=== PATIENT | female | born 1960 | race African-American/Black ===

== ENCOUNTER 2024-03-23 10:52 | Emergency (ER) | payer OTHER ==
[2024-03-23 11:04] VITALS: BP 119/75; PULSE 63; RESP 16; TEMP 97.6
--- NOTE | 2024-03-23 11:54 | ED ---
General Adult HPI - General Chief complaint: Recheck/Abnormal Lab/Rx Stated complaint: behavioral health Time Seen by Provider: 03/23/24 11:48 Source: patient, RN notes reviewed Mode of arrival: EMS Limitations: no limitations - History of Present Illness Initial comments: 63-year-old female with history of diabetes and hypertension presenting with episode of chest pain earlier today. States she was at [facility] for heroin use and this morning she began to feel a substernal chest pain that radiated to her left shoulder and left side of her face. She states she took 325mg aspirin and the pain resolved. She is not currently having any symptoms. She states she was discharged from [facility] today. Denies any cardiac history. - Related Data Allergies Allergy/AdvReac Type Severity Reaction Status Date / Time erythromycin base Allergy Rash/Hives Verified 03/23/24 10:58 lisinopril Allergy Anaphylaxis Verified 03/23/24 10:58 Review of Systems ROS Statement: Those systems with pertinent positive or pertinent negative responses have been documented in the HPI. ROS Other: All systems not noted in ROS Statement are negative. Past Medical History Past Medical History: Asthma, Diabetes Mellitus, Hyperlipidemia, Hypertension History of Any Multi-Drug Resistant Organisms: None Reported Past Surgical History: No Surgical Hx Reported Past Psychological History: Depression Smoking Status: Current some day smoker Past Alcohol Use History: Occasional Past Drug Use History: Cocaine General Exam Limitations: no limitations General appearance: alert, in no apparent distress Head exam: Present: atraumatic, normocephalic, normal inspection Eye exam: Present: normal appearance, PERRL, EOMI. Absent: scleral icterus, co njunctival injection, periorbital swelling ENT exam: Present: normal exam, mucous membranes moist Respiratory exam: Present: normal lung sounds bilaterally. Absent: respiratory distress, wheezes, rales, rhonchi, stridor Cardiovascular Exam: Present: regular rate, normal rhythm, normal heart sounds. Absent: systolic murmur, diastolic murmur, rubs, gallop, clicks GI/Abdominal exam: Present: soft, normal bowel sounds. Absent: distended, tenderness, guarding, rebound, rigid Neurological exam: Present: alert, oriented X3 Psychiatric exam: Present: normal affect, normal mood Skin exam: Present: warm, dry, intact, normal color. Absent: rash Course Vital Signs 03/23/24 10:58 Temperature 97.6 F Pulse Rate 63 Respiratory 16 Rate Blood Pressure 119/75 O2 Sat by Pulse 97 Oximetry EKG Findings - EKG Results: EKG: interpreted by [facility] (EKG reveals sinus bradycardia with no ST changes. Ventricular rate 57 bpm, [place] interval 170, QRS duration 73, QT/QTc 398/393) Medical Decision Making - Medical Decision Making Was pt. sent in by a medical professional or institution (, PA, MANUAL WRITER, urgent care, hospital, or half-way...) When possible be specific @ -Sent from [facility] Did you speak to anyone other than the patient for history (EMS, parent, family, police, friend...)? What history was obtained from this source @ -No Did you review nursing and triage notes (agree or disagree)? Why? @ -I reviewed and agree with nursing and triage notes Were old charts reviewed (outside hosp., previous admission, EMS record, old EKG, old radiological studies, urgent care reports/EKG's, half-way records)? Report findings @ -No old charts were reviewed Differential Diagnosis (chest pain, altered mental status, abdominal pain women, abdominal pain men, vaginal bleeding, weakness, fever, dyspnea, syncope, headache, dizziness, GI bleed, back pain, seizure, CVA, palpatations, mental health, musculoskeletal)? @ -Differential Chest Pain: Stable Angina, Unstable Angina, STEMI, NSTEMI Aortic Dissection, Pneumothorax, Musculoskeletal, Esophageal Spasm GERD, Cholecystitis, Pancreatitis, Zoster, this is not meant to be an all-inclusive list. EKG interpreted by me (3pts min.). @ -As above X-rays interpreted by me (1pt min.). @ -Chest x-ray reveals no acute process CT interpreted by me (1pt min.). @ -None done U/S interpreted by me (1pt. min.). @ -None done What testing was considered but not performed or refused? (CT, X-rays, U/S, labs)? Why? @ -None What meds were considered but not given or refused? Why? @ -None Did you discuss the management of the patient with other professionals (professionals i.e. , STACI, MANUAL WRITER, lab, RT, psych nurse, social media director, line haul driver, teacher, food safety officer, spring encaser)? Give summary @ -No Was smoking cessation discussed for >3mins.? @ -No Was critical care preformed (if so, how long)? @ -No Were there social determinants of health that impacted care today? How? (Homelessness, low income, unemployed, alcoholism, drug addiction, transportation, low edu. Level, literacy, decrease access to med. care, prison, rehab)? @ -No Was there de-escalation of care discussed even if they declined (Discuss DNR or withdrawal of care, Hospice)? DNR status @ -No What co-morbidities impacted this encounter? (DM, HTN, Smoking, COPD, CAD, Cancer, CVA, ARF, Chemo, Hep., AIDS, mental health diagnosis, sleep apnea, morbid obesity)? @ -None Was patient admitted / discharged? Hospital course, mention meds given and route, prescriptions, significant lab abnormalities, going to OR and other pertinent info. @ -Patient was discharged. Patient was seen and evaluated for episode of chest pain earlier this morning. Patient is currently asymptomatic. Past medical history includes diabetes and hypertension. Vital signs and physical exam is unremarkable. Lab work including CBC, CMP, coags, magnesium, and troponin were unremarkable besides BUN 24 and glucose 352. Upon recheck, blood glucose is 304. EKG reveals sinus bradycardia with no ST changes. Chest x-ray reveals no acute process. Upon reevaluation, patient remains asymptomatic and blood glucose via monitor is 269. Discussed that there are no signs of emergent etiology that caused episode of chest pain. Advise close follow-up with PCP in 1 to 2 days. Strict return parameters discussed and patient shows understanding and agrees to plan. Case discussed with my attending Dr. Meyers. Patient discharged in stable condition. Undiagnosed new problem with uncertain prognosis? @ -No Drug Therapy requiring intensive monitoring for toxicity (Heparin, Nitro, Insulin, Cardizem)? @ -No Were any procedures done? @ -No Diagnosis/symptom? @ -Chest pain Acute, or Chronic, or Acute on Chronic? @ -Acute Uncomplicated (without systemic symptoms) or Complicated (systemic symptoms)? @ -Uncomplicated Side effects of treatment? @ -No Exacerbation, Progression, or Severe Exacerbation? @ -No Poses a threat to life or bodily function? How? (Chest pain, [place], [place], pneumonia, PE, COPD, DKA, ARF, appy, cholecystitis, CVA, Diverticulitis, Homicidal, Natalia cidal, threat to staff... and all critical care pts) @ -Unlikely at this time - Lab Data Result diagrams: 03/23/24 11:50 03/23/24 11:50 Lab Results 03/23/24 03/23/24 03/23/24 Range/Units 11:50 11:50 11:50 WBC 3.5 L (3.8-10.6) k/uL RBC 5.58 H (3.80-5.40) m/uL Hgb 15.1 (11.4-16.0) gm/dL Hct 50.1 H (34.0-46.0) % MCV 89.9 (80.0-100.0) fL MCH 27.0 (25.0-35.0) pg MCHC 30.1 L (31.0-37.0) g/dL RDW 14.5 (11.5-15.5) % Plt Count 172 (150-450) k/uL MPV 10.0 Neutrophils % 40 % Lymphocytes % 43 % Monocytes % 7 % Eosinophils % 6 % Basophils % 1 % Neutrophils # 1.4 (1.3-7.7) k/uL Lymphocytes # 1.5 (1.0-4.8) k/uL Monocytes # 0.2 (0-1.0) k/uL Eosinophils # 0.2 (0-0.7) k/uL Basophils # 0.0 (0-0.2) k/uL Hypochromasia Moderate PT 10.6 (10.0-12.5) sec INR 1.0 (<1.2) APTT 24.5 (22.0-30.0) sec Sodium 136 L (137-145) mmol/L Potassium 4.2 (3.5-5.1) mmol/L Chloride 103 (98-107) mmol/L Carbon Dioxide 27 (22-30) mmol/L Anion Gap 6 mmol/L BUN 24 H (7-17) mg/dL Creatinine 1.04 (0.52-1.04) mg/dL Est GFR (CKD-EPI)AfAm 66 (>60 ml/min/1.73 sqM) Est GFR (CKD-EPI)NonAf 58 (>60 ml/min/1.73 sqM) Glucose 352 H (74-99) mg/dL POC Glucose (mg/dL) (70-110) mg/dL POC Glu Cementer ID Calcium 9.4 (8.4-10.2) mg/dL Magnesium 1.9 (1.6-2.3) mg/dL Total Bilirubin 0.4 (0.2-1.3) mg/dL AST 22 (14-36) U/L ALT 15 (4-34) U/L Alkaline Phosphatase 67 (38-126) U/L Troponin I (0.000-0.034) ng/mL Total Protein 6.7 (6.3-8.2) g/dL Albumin 3.9 (3.5-5.0) g/dL 03/23/24 03/23/24 Range/Units 11:50 12:11 WBC (3.8-10.6) k/uL RBC (3.80-5.40) m/uL Hgb (11.4-16.0) gm/dL Hct (34.0-46.0) % MCV (80.0-100.0) fL MCH (25.0-35.0) pg MCHC (31.0-37.0) g/dL RDW (11.5-15.5) % Plt Count (150-450) k/uL MPV Neutrophils % % Lymphocytes % % Monocytes % % Eosinophils % % Basophils % % Neutrophils # (1.3-7.7) k/uL Lymphocytes # (1.0-4.8) k/uL Monocytes # (0-1.0) k/uL Eosinophils # (0-0.7) k/uL Basophils # (0-0.2) k/uL Hypochromasia PT (10.0-12.5) sec INR (<1.2) APTT (22.0-30.0) sec Sodium (137-145) mmol/L Potassium (3.5-5.1) mmol/L Chloride (98-107) mmol/L Carbon Dioxide (22-30) mmol/L Anion Gap mmol/L BUN (7-17) mg/dL Creatinine (0.52-1.04) mg/dL Est GFR (CKD-EPI)AfAm (>60 ml/min/1.73 sqM) Est GFR (CKD-EPI)NonAf (>60 ml/min/1.73 sqM) Glucose (74-99) mg/dL POC Glucose (mg/dL) 304 H (70-110) mg/dL POC Glu C[place]er [place] Calcium (8.4-10.2) mg/dL Magnesium (1.6-2.3) mg/dL Total Bilirubin (0.2-1.3) mg/dL AST (14-36) U/L ALT (4-34) U/L Alkaline Phosphatase (38-126) U/L Troponin I <0.012 (0.000-0.034) ng/mL Total Protein (6.3-8.2) g/dL Albumin (3.5-5.0) g/dL Disposition Clinical Impression: Chest pain Disposition: HOME SELF-CARE Condition: Stable Additional Instructions: Please follow-up with PCP. Please return to the Emergency Department if sympto ms worsen or any other concerns. Is patient prescribed a controlled substance at d/c from ED?: No Referrals: Savi Calixto DO [Primary Care Provider] - 1-2 days Time of Disposition: 14:04
[2024-03-23 12:13] LABS: Glucose,Whole Blood 304 mg/dL (70-110)
[2024-03-23 12:43] LABS: ALT 15 U/L (4-34); AST 22 U/L (14-36); African American GFR (CKD) 66 (>60 ml/min/1.73 sqM); Albumin 3.9 g/dL (3.5-5.0); Alkaline Phosphatase 67 U/L (38-126); Anion Gap 6 mmol/L; Blood Urea Nitrogen 24 mg/dL (7-17); Calcium 9.4 mg/dL (8.4-10.2); Carbon Dioxide 27 mmol/L (22-30); Chloride 103 mmol/L (98-107); Glucose 352 mg/dL (74-99); Magnesium 1.9 mg/dL (1.6-2.3); Non-African American GFR(CKD) 58 (>60 ml/min/1.73 sqM); Partial Thromboplastin Time 24.5 sec (22.0-30.0); Potassium 4.2 mmol/L (3.5-5.1); Prothrombin Time 10.6 sec (10.0-12.5); Sodium 136 mmol/L (137-145); Total Bilirubin 0.4 mg/dL (0.2-1.3); Total Protein 6.7 g/dL (6.3-8.2)
[2024-03-23 12:52] LABS: Basophils % (A) 1 %; Eosinophils # (A) 0.2 k/uL (0-0.7); Eosinophils % (A) 6 %; HCT 50.1 % (34.0-46.0); HGB 15.1 gm/dL (11.4-16.0); Hypochromasia Moderate; Lymphocytes # (A) 1.5 k/uL (1.0-4.8); Lymphocytes % (A) 43 %; MCHC 30.1 g/dL (31.0-37.0); MCV 89.9 fL (80.0-100.0); Monocytes # (A) 0.2 k/uL (0-1.0); Monocytes % (A) 7 %; Neutrophils # (A) 1.4 k/uL (1.3-7.7); Neutrophils % (A) 40 %; Platelet Count 172 k/uL (150-450); RBC 5.58 m/uL (3.80-5.40); RDW 14.5 % (11.5-15.5); WBC 3.5 k/uL (3.8-10.6)
--- NOTE | 2024-03-23 13:25 | XR ---
EXAMINATION TYPE: XR chest 2V DATE OF EXAM: 03/23/2024 COMPARISON: None INDICATION: Chest pain TECHNIQUE: Frontal and lateral views of the chest are obtained. FINDINGS: The heart size is normal. The pulmonary vasculature is normal. The lungs are clear. IMPRESSION: 1. No acute pulmonary process.
== END 2024-03-23 14:52 | disposition home or self-care (01) ==
LOC: EC 10:52
DX: R07.89 Other chest pain (principal); R00.1 Bradycardia, unspecified; F17.200 Nicotine dependence, unspecified, uncomplicated; F14.90 Cocaine use, unspecified, uncomplicated; Z88.6 Allergy status to analgesic agent; Z88.1 Allergy status to other antibiotic agents
CPT/HCPCS: 36415; 71046; 80053; 83735; 84484; 85025; 85610; 85730; 93005; 99284